=== PATIENT | male | born 1980 | race African-American/Black ===

== ENCOUNTER 2019-02-05 22:46 | Emergency (ER) | payer OTHER ==
[~2019-02-05] VITALS: Ht 170.2 cm; Wt 99.8 kg
[2019-02-06] MEDS ORDERED: BACTRIM DS TAB1 EACH PO (00:21)
[2019-02-06 00:31] VITALS: BP 172/80
== END 2019-02-06 00:40 | disposition home or self-care (01) ==
LOC: ER 22:46
DX: S80.262A Insect bite (nonvenomous), left knee, initial encounter (principal); L02.416 Cutaneous abscess of left lower limb; J45.909 Unspecified asthma, uncomplicated; F17.210 Nicotine dependence, cigarettes, uncomplicated; I10 Essential (primary) hypertension; W57.XXXA Bitten or stung by nonvenomous insect and other nonvenomous arthropods, initial encounter; Y92.89 Other specified places as the place of occurrence of the external cause; Y93.89 Activity, other specified; Y99.8 Other external cause status